=== PATIENT | female | born 1955 | race Caucasian/White ===

== ENCOUNTER 2021-08-13 13:23 | Emergency (ER) | payer OTHER ==
[~2021-08-13] VITALS: Ht 167.6 cm; Wt 67.5 kg
[2021-08-13] MEDS ORDERED: IOHEXOL 350 MG/ML 75 ML VIAL ONE (13:29)
[2021-08-13] MEDS ORDERED: SODIUM CHLORIDE 0.9% 0 ML ONE (13:29)
[2021-08-13 13:41] LABS: EOSINOPHILS % (AUTO) 5.2 % (1.0-6.0); HEMATOCRIT 40.1 % (36-46); HEMOGLOBIN 13.9 g/dL (12.0-16.0); LYMPHOCYTES # (AUTO) 2.1 K/uL (1.0-4.8); LYMPHOCYTES % (AUTO) 42.9 % (22.0-44.0); MEAN CORPUSCULAR HEMOGLOBIN 30.4 pg (26.0-34.0); MEAN CORPUSCULAR HGB CONC 34.6 G/dL (31.0-37.0); MEAN CORPUSCULAR VOLUME 88 fL (80-100); MONOCYTES # (AUTO) 0.5 K/uL (0.1-1.0); MONOCYTES % (AUTO) 9.8 % (2.0-9.0); NEUTROPHILS # (AUTO) 2.1 K/uL (1.8-7.7); NEUTROPHILS % (AUTO) 41.1 % (40.0-70.0); PLATELET COUNT (AUTO) 150 K/uL (150-450); RED BLOOD CELL COUNT(AUTO) 4.57 MIL/uL (4.00-5.20); RED CELL DISTRIBUTION WIDTH 12.5 % (11.5-14.5)
[2021-08-13 14:07] LABS: ANION GAP 9 mmol/L (8-16); CARBON DIOXIDE 27 mmol/L (22-29); CHLORIDE 105 mmol/L (98-107); CREATININE 0.79 mg/dL (0.60-1.30); GLOMERULAR FILTR. RATE CALC > 60 mL/min (>60); GLUCOSE,RANDOM 91 mg/dL (70-110); POTASSIUM 4.2 mmol/L (3.5-5.1); SODIUM SERUM 141 mmol/L (136-145); UREA NITROGEN, BLOOD 17 mg/dL (7-18)
[2021-08-13 14:13] LABS: ALANINE AMINOTRANSFERASE 27 U/L (12-78); ALBUMIN 3.7 g/dL (3.4-5.0); ALKALINE PHOSPHATASE 66 U/L (46-116); ASPARTATE AMINOTRANSFERASE 20 U/L (15-37); BILIRUBIN,TOTAL 0.5 mg/dL (0.1-1.0); TOTAL PROTEIN, SERUM 6.5 g/dL (6.4-8.2)
[2021-08-13 14:48] LABS: APPEARANCE,URINE CLEAR (CLEAR); BILIRUBIN,URINE NEGATIVE (NEGATIVE); GLUCOSE, URINE (UA) NEGATIVE (NEGATIVE); KETONES,URINE NEGATIVE (NEGATIVE); LEUKOCYTE ESTERASE ,URINE NEGATIVE (NEGATIVE); NITRATE,URINE NEGATIVE (NEGATIVE); OCCULT BLOOD,URINE NEGATIVE (NEGATIVE); PROTEIN,URINE NEGATIVE (NEGATIVE); SPECIFIC GRAVITIY, URINE 1.005 (1.003-1.030); UROBILINOGEN,URINE <=1.0 mg/dL (<=1.0)
[2021-08-13 14:51] LABS: BACTERIA,URINE None Seen /HPF (None Seen); RBC,URINE None Seen /HPF (0-2); WBC,URINE None Seen /HPF (0-5)
[2021-08-13] MEDS ORDERED: CLOPIDOGREL BISULFATE 75 MG TABLET PO ONE (15:00)
[2021-08-13] MEDS ORDERED: ASPIRIN 81 MG CHEWABLE TABLET PO ONE (15:00)
[2021-08-13 15:29] LABS: COVID AG,FIA SOURCE NASOPHARYNGEAL
[2021-08-13 18:30] VITALS: BP 160/69
== END 2021-08-13 18:37 | disposition short-term general hospital (02) ==
LOC: EMS 13:26
DX: G45.9 Transient cerebral ischemic attack, unspecified (principal); Z20.822 Contact with and (suspected) exposure to COVID-19
CPT/HCPCS: 71045; 80053; 81001; 84484; 85025; 85730; 93005; 99291; J7050; Q9967; 36415-L1; 36415-TC; 70450; 70450-TC